=== PATIENT | male | born 1990 | race Caucasian/White ===

== ENCOUNTER 2017-05-04 21:46 | Emergency (ER) | payer SELFPAY ==
[~2017-05-04] VITALS: Ht 165.1 cm; Wt 68.0 kg
[~2017-05-04 21:46] MED LIST: AUGM875T PO; IBUP800 PO
[2017-05-04 21:51] VITALS: BP 147/85; PULSE 79; RESP 16; TEMP 98.7; O2SAT 99
[2017-05-04] MEDS ORDERED: PROPARACAINE HCL 0.5% OPHT SOLN 15 ML BTL LEFT EYE ONE (22:15)
[2017-05-04] MEDS ORDERED: POLYMYXIN/TRIMETHOPRIM OPHT SOLN 10 ML BTL LEFT EYE ONE (22:30)
[2017-05-04] MEDS ORDERED: POLY10O LEFT EYE (22:33)
--- NOTE | 2017-05-04 22:33 | PD ---
HPI Chief Complaint: Eye Problems/Injury Time Seen by Provider: 21:57 Travel History International Travel<30 days: No Contact w/Intl Traveler<30days: No Traveled to known affect area: No History of Present Illness HPI 26-year-old male here for evaluation of left eye foreign body. The patient reports he was grinding metal and was wearing glasses when material passed around his glasses and some when into his left eye. This occurred about an hour prior to arrival. States that he flushed his eye thoroughly, however he notes a small piece of metal over central cornea as well as foreign body sensation to his eye. He reports that this is not the first time that he has had a metal foreign body in his eye, however previous episodes occurred from direct penetrating trauma to the eye with medal, and this time metal shavings made its way around his glasses and into his eye. He does not wear contacts. Denies any visual changes. Pain is moderate and described as foreign body sensation. Last tetanus was 2 years ago. [facility] Past Medical History Medical History: Denies Significant Hx Diminished Hearing: No Tetanus Vaccination: < 5 Years Past Surgical History Other Surgery: Yes (NOSE) Social History Alcohol Use: Yes (OCCASSIONALLY) Tobacco Use: No Substance Use: Yes (marijuana) Allergies-Medications (Allergen,Severity, Reaction): Coded Allergies: No Known Allergies (Unverified Adverse Reaction, Unknown, 05/04/17) Reported Meds & Prescriptions Reported Meds & Active Scripts Active No Active Prescriptions or Reported Medications Review of Systems Except as stated in HPI: all other systems reviewed are Neg Physical Exam Narrative GENERAL: Well-developed, well-nourished, comfortable, no apparent distress. EYES: Pupils equal, round, 3 mm, reactive to light. EOMI. Left eye with linear /vertical/approximately 1 mm foreign body over the central cornea. Proparacaine was used to anesthetize the eye, and the foreign body was removed using a Q-tip. See procedure note. Eyelids were everted and no other foreign bodies were noted. There is no rust ring. After the procedure was performed, fluoresceine stain was performed and shows superficial corneal abrasion over the central left cornea, negative Diego sign. Staining of the right eye shows no abrasions, and there are no foreign bodies in the right eye with eyelid eversion. No hyphema or hypopyon bilaterally. Visual acuity shows 20/30 in the left eye, 20/30 in the right eye, 20/20 vision with bilateral eyes. PSYCHIATRIC: Appropriate mood and affect; insight and judgment normal. Data Data Last Documented VS Vital Signs Date Time Temp Pulse Resp B/P (MAP) Pulse Ox O2 Delivery O2 Flow Rate FiO2 05/04/17 21:51 98.7 79 16 147/85 (105) 99 Room Air Orders Orders Proparacaine 0.5% Opth Soln (Alcaine 0.5 (05/04/17 22:15) Polymyxin/Trimethop Opht Soln (Polytrim (05/04/17 22:30) MDM Medical Decision Making Medical Screen Exam Complete: Yes Emergency Medical Condition: Yes Differential Diagnosis Left eye foreign body, corneal abrasion Narrative Course This is a 26-year-old male with metallic foreign body to his left eye while grinding metal about an hour prior to arrival. Eye exam as below. EYES: Pupils equal, round, 3 mm, reactive to light. EOMI. Left eye with linear /vertical/approximately 1 mm foreign body over the central cornea. Proparacaine was used to anesthetize the eye, and the foreign body was removed using a Q-tip. See procedure note. Eyelids were everted and no other foreign bodies were noted. There is no rust ring. After the procedure was performed, fluoresceine stain was performed and shows superficial corneal abrasion over the central left cornea, negative Diego sign. Staining of the right eye shows no abrasions, and there are no foreign bodies in the right eye with eyelid eversion. No hyphema or hypopyon bilaterally. Visual acuity shows 20/30 in the left eye, 20/30 in the right eye, 20/20 vision with bilateral eyes. Patient alone and has foreign body sensation to his left eye. There are no visual disturbances. Negative Diego sign was noted after foreign body removal. This was not a high velocity injury, and was more of an indirect injury. I doubt that there is a penetrating trauma to the posterior orbit. Patient agrees with this. He was started on Polytrim ophthalmic eyedrops and advised follow-up with an composite technician in the next 1-2 days. He was advised on when to return to the emergency department. He verbalizes understanding and agreement with plan. Procedures Procedure Narrative Left eye foreign body removal: 2 drops of proparacaine were used to anesthetize the left eye. Left thigh mid corneal abrasion was removed using a Q-tip. Eyelids were everted and there are no other foreign bodies. There is no rust ring. Fluoresceine stain after foreign body removal shows central corneal abrasion which is superficial, negative Diego sign. Procedure was tolerated well. No complications. Diagnosis Primary Impression: Foreign body of left eye Qualified Codes: T15.92XA - Foreign body on external eye, part unspecified, left eye, initial encounter Additional Impression: Corneal abrasion, left Qualified Codes: S05.02XA - Injury of conjunctiva and corneal abrasion without foreign body, left eye, initial encounter Referrals: Rossi Machuca MD 1 day Additional Instructions: Follow-up with composite technician Dr. Machuca or composite technician of choice in the next 1-2 days. Return to the emergency department for worsening symptoms or any other concerns. Scripts Polymyxin B-Trimethoprim Opth Drops (Polytrim Opth Drops) 10,000-0.1 Unit/Ml-% Soln 1 DROP LEFT EYE Q6HR for Mgmt Bacterial Infection for 7 Days, #1 BOTTLE 0 Refills Prov: Sergo Johnson MD 05/04/17 Disposition: 01 DISCHARGE HOME Condition: Stable Sergo Johnson MD May 04, 2017 22:33
== END 2017-05-04 22:41 | disposition home or self-care (01) ==
LOC: NEPD 21:46
DX: T15.92XA Foreign body on external eye, part unspecified, left eye, initial encounter (principal); S05.02XA Injury of conjunctiva and corneal abrasion without foreign body, left eye, initial encounter; X58.XXXA Exposure to other specified factors, initial encounter; Y93.89 Activity, other specified
CPT/HCPCS: 99283